=== PATIENT | male | born 1955 | race African-American/Black ===

== ENCOUNTER 2018-06-24 12:17 | Outpatient (CLI) | payer OTHER ==
--- NOTE | 2018-06-24 15:26 | ULT ---
RIGHT LOWER EXTREMITY VENOUS ULTRASOUND WITH DOPPLER 06/24/18 HISTORY: Swelling. Edema. COMPARISON: None. FINDINGS: There is edema involving the right lower extremity starting at the knee and down to the lower leg. Th ere is an anechoic focus in the posterior fossa measuring 3.2 x 3.1. x 5.3 cm suggesting a popliteal cyst. There is a nonspecific likely complex fluid collection in the medial upper calf measuring 9.4 x 7.5 x 3.0 cm. There are internal echos which are presumed to be due to debris. Other etiologies ca nnot be included. There is compressibility, presence of flow and augmentation in the common femoral vein, femoral vein, and popliteal vein. There is flow in the greater saphenous vein, profunda vein and posterior tibial vein. IMPRESSION: 1. No evidence of thrombus in the right lower extremity deep venous system. 2. Nonspecific fluid in the popliteal fossa which may represent an irregular popliteal cyst. Con firmation with MRI. 3. Complex fluid in the medial aspect of the knee and upper calf. Echotexture within this comple x fluid collection is noted. Better interrogation with MRI is recommended. POS: ESTHER
== END 2018-06-24 12:18 | disposition home or self-care (01) ==
LOC: BICULT 12:17
PROVIDERS: ATTEND Family Medicine
DX: R60.0 Localized edema (principal)

== ENCOUNTER 2018-12-17 14:00 | Inpatient (IN) | payer OTHER ==
[2018-12-17 12:35] VITALS: BMI 33.6
[2018-12-22 09:46] LABS: #Basophils 0.1 thou/uL (0.0-0.2); #Eosinphils 0.1 thou/uL (0.0-0.7); #Lymphocytes 2.4 thou/uL (1.20-3.40); #Monocytes 0.5 thou/uL (0.11-0.59); #Neutrophils 2.2 thou/uL (1.40-6.50); %Eosinophils 2.1 % (0.0-10.0); %Lymphocytes 45.8 % (21.0-51.0); %Monocytes 9.4 % (0.0-10.0); %Neutrophils 41.8 % (42.0-75.0); Hemoglobin 13.1 g/dL (14.0-18.0); Mean Corpuscular HGB CONC 33.4 g/dL (32.0-36.0); Mean Corpuscular Hemoglobin 31.1 pg (27.0-31.0); Mean Platelet Volume 8.4 fL (7.4-10.4); Platelet Count 256 thou/uL (130-400); RBC Distribution Width 13.8 % (11.5-14.5); Red Blood Cell (RBC) Count 4.21 mill/uL (4.70-6.10); White Blood Cell (WBC) Count 5.3 thou/uL (4.8-10.8)
[2018-12-22 09:50] LABS: Bilirubin Negative (Negative); Blood, Urine Negative (Negative); Clarity CLEAR (Clear); Glucose, Urine (Dipstick) Negative (Negative); Leukocyte Negative (Negative); Nitrite Negative (Negative); Protein, Urine (Dipstick) 100 mg/dL (Neg-Trace); Specific Gravity, Urine 1.019 (1.002-1.036); pH, Urine 5.5 (5.0-9.0)
[2018-12-22 09:52] LABS: Bacteria/HPF None Seen HPF (None Seen); Hyaline Casts/LPF 0-3 HYALINE CAST LPF (0-3 Hyaline); INR-International Normal Ratio 1.1; Prothrombin Time 13.8 SEC (12.0-14.7); RBC/HPF 0-3 HPF (0-3); Squamous Epithelial None Seen HPF (0-3); WBC/HPF 0-3 HPF (0-3)
[2018-12-22 10:05] LABS: Anion Gap 11 mmol/L (10-20); BUN (Urea Nitrogen) 19 mg/dL (8.4-25.7); Calc. Creatinine Clearance 107 mL/min (70-130); Calcium 8.8 mg/dL (7.8-10.44); Carbon Dioxide 29 mmol/L (23-31); Chloride 103 mmol/L (98-107); Estimated GFR-MDRD 77; Glucose 147 mg/dL (80-115); Potassium 4.1 mmol/L (3.5-5.1); Sodium 139 mmol/L (136-145)
[2019-01-04] MEDS ORDERED: Tranexamic Acid 1,000 MG/10 ML VIAL ONE ×3 (06:03→09:29)
[2019-01-04] MEDS ORDERED: Sodium Chloride 0.9% 100 ML ONE (06:03)
[2019-01-04] MEDS ORDERED: Vancomycin HCl 1.5 GM in Sodium Chloride 0.9% 250 ML 300 ML IVPB SCH ×3 (06:15→20:00)
[2019-01-04] MEDS ORDERED: Midazolam HCl 2 mg/2 ml Vial ONE (06:31)
[2019-01-04] MEDS ORDERED: Fentanyl 100 MCG/2 ML VIAL ONE ×3 (06:31→09:21)
[2019-01-04] MEDS ORDERED: Lidocaine 1% (PF) 30 ML VIAL ONE (06:32)
[2019-01-04] MEDS ORDERED: Promethazine HCl 25 MG/ML VIAL IM PRN ×3 (07:09→09:14)
[2019-01-04] MEDS ORDERED: Fentanyl 100 MCG/2 ML VIAL IV PRN (07:09)
[2019-01-04] MEDS ORDERED: Ondansetron PF 4 MG/2 ML Vial IVP PRN ×2 (07:09→08:59)
[2019-01-04] MEDS ORDERED: traMADol HCl 50 MG TAB PO PRN ×2 (07:09)
[2019-01-04] MEDS ORDERED: Zolpidem Tartrate 5 MG TAB PO PRN ×2 (07:09→08:59)
[2019-01-04] MEDS ORDERED: Ropivacaine HCl/PF 250 ML in Premix Bag 1 BAG NERVE BLCK SCH (07:10)
[2019-01-04] MEDS ORDERED: Bupivacaine HCl 0.5%/Epinephrine 1:200,000/PF 30 ml Vial ONE (07:44)
[2019-01-04] MEDS ORDERED: Bupivacaine PF 0.5% 30 ML VIAL ONE (07:45)
[2019-01-04] MEDS ORDERED: diphenhydrAMINE 25 MG CAP PO PRN (08:59)
[2019-01-04] MEDS ORDERED: Acetaminophen 325 MG TAB PO PRN (08:59)
[2019-01-04] MEDS ORDERED: HYDRALAZINE HCL PO SCH (09:00)
[2019-01-04] MEDS ORDERED: ISOSORB DINIT PO SCH (09:00)
[2019-01-04] MEDS ORDERED: Tranexamic Acid 1,000 MG in Sodium Chloride 0.9% 100 ML IVPB SCH (09:00)
[2019-01-04] MEDS ORDERED: Labetalol HCl 100 MG/20 ML VIAL ONE (09:11)
[2019-01-04] MEDS ORDERED: Promethazine HCl 25 MG/ML VIAL SLOW IVP PRN (09:14)
[2019-01-04] MEDS ORDERED: Ondansetron HCl/PF 4 MG/2 ML Vial IVP PRN (09:14)
[2019-01-04] MEDS: Sodium Chloride 0.9% 1,000 ML IV SCH ×2 (10:28→18:55)
[2019-01-04] MEDS: metFORMIN 500 MG TAB PO SCH (10:31)
[2019-01-04] MEDS: Aspirin 81 mg Enteric Coated Tablet PO SCH ×2 (10:32→20:44)
[2019-01-04] MEDS: Allopurinol 300 MG TAB PO SCH (10:39)
[2019-01-04] MEDS: Ketorolac Tromethamine 30 MG/ML VIAL IVP SCH ×3 (11:08→23:52)
[2019-01-04] MEDS ORDERED: hydrALAZINE 25 MG TAB PO SCH (11:45)
[2019-01-04] MEDS ORDERED: Lisinopril 20 MG TAB PO SCH (11:45)
[2019-01-04] MEDS ORDERED: Isosorbide Dinitrate 20 MG TAB PO SCH (11:45)
[2019-01-04] MEDS ORDERED: Carvedilol 25 MG TAB PO SCH ×2 (11:45→21:00)
[2019-01-04] MEDS ORDERED: Furosemide 20 MG TAB PO SCH (11:45)
[2019-01-04] MEDS ORDERED: Ropivacaine 0.2% HCl/PF (40 MG/20 ML VIAL) ONE (11:57)
[2019-01-04] MEDS ORDERED: Ropivacaine 0.5% HCl/PF (150 MG/30 ML VIAL) ONE (11:57)
[2019-01-04] MEDS ORDERED: PROPOFOL 200 MG/20 ML VIAL ONE (13:13)
[2019-01-04] MEDS ORDERED: Ondansetron PF 4 MG/2 ML Vial ONE (13:13)
[2019-01-04] MEDS ORDERED: Lidocaine 1% PF 5 ML VIAL ONE (13:13)
[2019-01-04] MEDS: HYDROcodone/Acetaminophen 10/325 mg Tablet PO PRN (14:28)
--- NOTE | 2019-01-04 16:00 | OP ---
DATE OF PROCEDURE: 01/04/2019 PREOPERATIVE DIAGNOSIS: Right knee osteoarthrosis. POSTOPERATIVE DIAGNOSIS: Right knee osteoarthrosis. PROCEDURE PERFORMED: Right total knee replacement using [employer] pinless navigation. FLIGHT OPERATIONS MANAGER: Kehinde Blanco PA-C. BLOOD LOSS: Minimal. COMPLICATIONS: None. ANESTHESIA: He did have a general anesthetic as well as a preoperative block. IMPLANTS: To the right leg is a Triathlon total knee system. The femur size 5 cruciate retaining. The tibial base plate was size 5 primary base plate. We used a 5 x 11 mm X3 CS poly and we used an 8.29 x 9 asymmetric X3 patella. DISPOSITION: He did go to recovery room in stable condition. INDICATIONS: A 63-year-old male, who has failed nonoperative treatment for severe right knee arthritis and at this time is wanting to have his knee replaced. PROCEDURE IN DETAIL: After all appropriate consent forms were explained and signed, the patient was taken back to the operating room and at this time was given general anesthetic. Once the level of anesthesia was appropriate, a well-padded tourniquet was placed on the right leg, and the leg was then prepped and draped in standard surgical fashion. The limb was exsanguinated and tourniquet taken up to 300 mmHg. Midline incision was made with a 10 blade down through the skin and subcutaneous tissue. Bovie electrocautery was used to coagulate any brisk venous bleeding. A new blade was used to make a medial parapatellar arthrotomy. Small subperiosteal release was performed medially and excess fat pad was removed. The knee was flexed up to gain access to the femur. The femur was navigated and distal femoral resection was made. Epicondylar access was used to align our sizing jig and this was pinned in place. We sized our femur to be a 5. 4:1 cutting block was applied and pinned. Anterior and posterior chamfer cuts were then made. We navigated out our proximal tibia and made our proximal tibial resection. Spreaders were used to remove any posterior osteophytes off the back of the femur as well as remaining meniscal tissue. A long alignment shabbir was then used to achieve correct rotation of our tibial baseplate and a size 5 was chosen. This was pinned in place. We trialed the polyethylene and a 5 x 11 mm X3 CS polyethylene gave us full extension and good stability throughout range of motion. Two towel clips and a saw were used to cut our patella. Three lug nuts were drilled and 8.29 x 9 asymmetric X3 patella was trialed which sat nicely in the trochlear groove. We then drilled our femur and punched our tibia. All components were removed. The knee was thoroughly irrigated and dried. Cement was mixed into the cement gun on the back table. Components were then placed. The knee was held out in full extension until the cement had dried. All excess bone cement was removed. Multiple #2 Vicryl stitches as well as a Quill were used to close our extensor mechanism. 0 Quill followed by a running Monoderm was then used to close the skin. Surgicel glue was then used on the skin. Once this had dried, soft tissue dressing was applied to the limb, tourniquet was let down, and the toes pinked up nicely. The patient was then awakened and taken to the recovery room in stable condition. All counts were correct at the end of the case. The patient did receive preoperative IV antibiotics. The patient was injected with Exparel for postoperative pain relief. Job ID: [id number]
[2019-01-04] MEDS: CEFAZOLIN 2 GM in Premix Bag 1 BAG IVPB SCH ×2 (16:18→23:51)
[2019-01-04] MEDS ORDERED: Labetalol 5 MG/ML SYRINGE (IV ROOM) SLOW IVP PRN (19:31)
[2019-01-04] MEDS ORDERED: HumaLOG 300 UNITS/3 ML VIAL SC PRN (19:51)
[2019-01-04] MEDS: Atorvastatin Calcium 20 MG TAB PO SCH (20:44)
[2019-01-04] MEDS: hydrALAZINE 25 MG TAB PO SCH (20:44)
[2019-01-04] MEDS: Isosorbide Dinitrate 20 MG TAB PO SCH (20:46)
[2019-01-05] MEDS: HYDROcodone/Acetaminophen 10/325 mg Tablet PO PRN ×3 (00:20→16:11)
--- NOTE | 2019-01-05 00:56 | CON ---
DATE OF CONSULTATION: REASON FOR CONSULTATION: Medical management. HISTORY OF PRESENT ILLNESS: This is a 63-year-old male patient with a history of cardiomyopathy, type 2 diabetes, hypertension, hyperlipidemia, and osteoarthritis of his knee and other joints, who is admitted for a total knee replacement by Dr. Maddox. As the patient was cleared by Cardiology prior to going to surgery, he underwent a right total knee replacement today with no complications. He did have a postoperative episode of elevated blood pressure over 200 systolic. I believe he had not taken his oral medicines today. Medications were given for his blood pressure and his blood pressure came back down to the 150s. He denied chest pain, shortness of breath. Denies palpitations. He is walking well with therapy today and his blood pressure is doing much better. PAST MEDICAL HISTORY: Hypertension, hyperlipidemia, cardiomyopathy, status post AICD placement for decreased ejection fraction. MEDICATIONS: Include: 1. Metformin 500 mg once daily. 2. Lisinopril 40 mg once daily. 3. BiDil 20/37.5 mg three tabs b.i.d. 4. Furosemide 20 mg daily. 5. Carvedilol 25 mg b.i.d. 6. Simvastatin 40 mg daily. 7. Rarely taking naproxen p.r.n. 8. Allopurinol 300 mg daily. ALLERGIES: BENICAR CAUSING SLOWING. PAST SURGICAL HISTORY: Colonoscopy in 2002, cardiac catheterization in June 2014 with AICD placement. FAMILY HISTORY: Mother from coronary artery disease and heart disease. Father, no heart disease. SOCIAL HISTORY: He is retired from working for the [employer]. No smoking. No alcohol. No drug use. He is with children. REVIEW OF SYSTEMS: As per the history of present illness. He denies any recent fevers, chills, or recent illness. HEENT: Denies headache, visual or hearing changes. CARDIAC: No recent episodes of chest pain, shortness of breath or palpitations. PULMONARY: Denies cough or hemoptysis. GI: Denies nausea, vomiting, abdominal pain, melena, hematochezia. : Denies dysuria, hematuria. NEUROLOGIC: No weakness, seizure or syncope. MUSCULOSKELETAL: Positive history of knee pain, gout pain. PHYSICAL EXAMINATION: VITAL SIGNS: Temperature 98.6, pulse 76, respirations 16, blood pressure 158/95, pulse ox 95% on 2 L. GENERAL: He is awake and alert. No acute distress. Speech is clear. NECK: Supple. No JVD, adenopathy, or bruits. HEART: Regular rate and rhythm. LUNGS: Clear bilaterally. ABDOMEN: Obese, soft, nontender, and nondistended. No hepatosplenomegaly. EXTREMITIES: No clubbing, cyanosis, or edema. 2+ peripheral pulses. Moves both extremities. Knee with dressing in place. LABORATORY DATA: Reviewed preoperatively with a white blood cell count of 5300, hemoglobin and hematocrit 13.1 and 39.1, platelets of 256. Sodium 139, potassium 4.1, chloride 103, CO2 of 29, BUN and creatinine 19 and 1.16 with a GFR of 77, glucose of 147. Random Accu-Chek today was 117. ASSESSMENT AND PLAN: This is a 63-year-old gentleman with history of type 2 diabetes, hypertension, and cardiomyopathy with decreased left ventricular ejection fraction, now status post right total knee replacement. 1. Postoperative care as per Dr. Maddox. 2. Hypertension, much better after starting his antihypertensive. We will continue his usual oral medications and labetalol p.r.n. blood pressure over 170. 3. Type 2 diabetes. We will continue his metformin and Accu-Cheks with insulin sliding scale. 4. History of cardiomyopathy. We will continue his home medications and monitor closely. 5. Disposition: Home when okay with Dr. Maddox. I will follow along while he is in house. Job ID: [id number]
[2019-01-05] MEDS: Sodium Chloride 0.9% 1,000 ML IV SCH ×2 (04:15→16:05)
[2019-01-05 04:55] LABS: Mean Corpuscular Volume 93.9 fL (78.0-98.0); Mean Platelet Volume 8.6 fL (7.4-10.4); Platelet Count 213 thou/uL (130-400); Red Blood Cell (RBC) Count 3.57 mill/uL (4.70-6.10); White Blood Cell (WBC) Count 11.3 thou/uL (4.8-10.8)
[2019-01-05] MEDS: Ketorolac Tromethamine 30 MG/ML VIAL IVP SCH ×3 (06:31→17:46)
[2019-01-05] MEDS: HumaLOG 300 UNITS/3 ML VIAL SC PRN ×2 (06:54→21:51)
[2019-01-05] MEDS: metFORMIN 500 MG TAB PO SCH (08:29)
[2019-01-05] MEDS: hydrALAZINE 25 MG TAB PO SCH ×2 (08:29→20:24)
[2019-01-05] MEDS: Ferrous Gluconate 324 MG TAB PO SCH ×2 (08:30→20:23)
[2019-01-05] MEDS: Carvedilol 25 MG TAB PO SCH ×2 (08:30→20:31)
[2019-01-05] MEDS: Aspirin 81 mg Enteric Coated Tablet PO SCH ×2 (08:31→20:23)
[2019-01-05] MEDS: Lisinopril 20 MG TAB PO SCH (08:31)
[2019-01-05] MEDS: Senokot S 8.6-50 MG TAB PO SCH ×2 (08:31→20:23)
[2019-01-05] MEDS: Furosemide 20 MG TAB PO SCH (08:32)
[2019-01-05] MEDS: Isosorbide Dinitrate 20 MG TAB PO SCH ×2 (08:32→20:23)
[2019-01-05] MEDS: Allopurinol 300 MG TAB PO SCH (08:32)
[2019-01-05] MEDS: Multivitamin W/ Minerals 1 TAB PO SCH (08:32)
--- NOTE | 2019-01-05 08:45 | PRG ---
DATE OF SERVICE: 01/05/2019 SUBJECTIVE: The patient is doing well. He is tolerating physical therapy. He walked well yesterday. Denies chest pain, shortness of breath, or palpitations. Blood pressure has been under much better control since yesterday and that he is back on his usual meds. He is off oxygen and feeling well. Had a low-grade temperature yesterday, but improved this morning. Good appetite. OBJECTIVE: VITAL SIGNS: Temperature 99.0, pulse of 74 to 99, respirations 18, blood pressure 150/88, pulse ox 96% on room air. GENERAL: He is awake and alert, in no acute distress. Speech is clear. NECK: Supple. HEART: Regular rate and rhythm. LUNGS: Clear anteriorly. ABDOMEN: Soft. EXTREMITIES: With no edema. Dressing on right knee. LABORATORY DATA: Accu-Chek 117. ASSESSMENT AND PLAN: This is a 63-year-old gentleman with a history of hypertension, cardiomyopathy, type 2 diabetes, now postoperative day #1 from right total knee replacement. 1. Postoperative care as per Orthopedics, tolerating PT well. 2. Hypertension, doing at his baseline. We will continue his oral meds as well as p.r.n. labetalol. 3. Type 2 diabetes, stable on his metformin. 4. History of cardiomyopathy. We will continue his home medications and monitor his blood pressure and breathing closely. Job ID: [id number]
--- NOTE | 2019-01-05 09:56 | PRG ---
DATE OF SERVICE: 01/05/2019 SUBJECTIVE: Humberto is a 63-year-old white male, postop day #1 right total knee arthroplasty. He is doing well. He is appropriate and conversive and pain has been well controlled. OBJECTIVE: GENERAL: He is alert and oriented to person, place, time, situation, grossly nonfocal. VITAL SIGNS: Temperature 99, pulse 71, respiratory rate 18, blood pressure 150/88. EXTREMITIES: Incision is clean. No strike through. He is neurovascularly intact in both lower extremities. LABORATORY DATA: Hemoglobin and hematocrit 11 and 33. IMPRESSION: A 63-year-old male, postop day #1 right total knee arthroplasty, doing well. PLAN: Continue current care. Discharge home tomorrow. Job ID: [id number]
[2019-01-05] MEDS: Atorvastatin Calcium 20 MG TAB PO SCH (20:23)
[2019-01-06] MEDS: HYDROcodone/Acetaminophen 10/325 mg Tablet PO PRN ×3 (00:17→22:35)
[2019-01-06] MEDS: Ketorolac Tromethamine 30 MG/ML VIAL IVP SCH ×2 (00:17→06:27)
[2019-01-06] MEDS: Sodium Chloride 0.9% 1,000 ML IV SCH ×3 (00:47→21:30)
[2019-01-06 05:01] LABS: Hemoglobin 10.7 g/dL (14.0-18.0); Mean Corpuscular HGB CONC 32.6 g/dL (32.0-36.0); Mean Corpuscular Hemoglobin 30.7 pg (27.0-31.0); Mean Corpuscular Volume 94.1 fL (78.0-98.0); Mean Platelet Volume 8.6 fL (7.4-10.4); Platelet Count 201 thou/uL (130-400); RBC Distribution Width 13.9 % (11.5-14.5); White Blood Cell (WBC) Count 12.1 thou/uL (4.8-10.8)
[2019-01-06] MEDS: hydrALAZINE 25 MG TAB PO SCH ×2 (08:06→21:24)
[2019-01-06] MEDS: Furosemide 20 MG TAB PO SCH (08:06)
[2019-01-06] MEDS: Ferrous Gluconate 324 MG TAB PO SCH ×2 (08:09→21:24)
[2019-01-06] MEDS: Aspirin 81 mg Enteric Coated Tablet PO SCH ×2 (08:09→21:23)
[2019-01-06] MEDS: Senokot S 8.6-50 MG TAB PO SCH ×2 (08:09→21:29)
[2019-01-06] MEDS: Lisinopril 20 MG TAB PO SCH (08:09)
[2019-01-06] MEDS: Multivitamin W/ Minerals 1 TAB PO SCH (08:09)
[2019-01-06] MEDS: metFORMIN 500 MG TAB PO SCH (08:10)
[2019-01-06] MEDS: Allopurinol 300 MG TAB PO SCH (08:10)
[2019-01-06] MEDS: Carvedilol 25 MG TAB PO SCH ×2 (08:13→21:24)
[2019-01-06] MEDS: Isosorbide Dinitrate 20 MG TAB PO SCH ×2 (08:13→21:27)
--- NOTE | 2019-01-06 09:50 | PRG ---
DATE OF SERVICE: 01/06/2019 Postop day #2 from right total knee replacement. SUBJECTIVE: The patient is doing well. He is tolerating therapy, walking well. Good pain relief. Denies chest pain, shortness of breath, or palpitations. Good appetite. Denies nausea or vomiting. OBJECTIVE: VITAL SIGNS: Temperature 99.2, T-max of 100.2, pulse of 83, respirations 16, blood pressure 113/72, pulse ox is 92% to 94% on room air. GENERAL: He is awake and alert. No acute distress. He is pleasant. HEENT: Mucosa is moist. NECK: Supple. HEART: Regular rate and rhythm. LUNGS: Clear. EXTREMITIES: With no edema. LABORATORY DATA: White blood cell count 12,100, hemoglobin and hematocrit 10.7 and 32.4, and platelets of 201. Accu-Cheks of 118, 157, 139, 137. ASSESSMENT AND PLAN: This is a 63-year-old gentleman with a history of type 2 diabetes, hypertension, and cardiomyopathy, now status post right total knee replacement and doing quite well. Plan to be discharged home today per Orthopedics. 1. Postoperative care as per Ortho. 2. Hypertension, doing well. We will continue his oral medications. May need to decrease his medications as he is having some low blood pressure readings. We will follow up as an outpatient. 3. Type 2 diabetes, has been doing quite stable on metformin. DISPOSITION: Home when okay with orthopedics and will have follow up for his blood pressure and diabetes as an outpatient. Job ID: [id number]
[2019-01-06] MEDS: Atorvastatin Calcium 20 MG TAB PO SCH (21:24)
[2019-01-07 04:54] LABS: Hemoglobin 9.6 g/dL (14.0-18.0); Mean Corpuscular HGB CONC 33.2 g/dL (32.0-36.0); Mean Corpuscular Hemoglobin 31.1 pg (27.0-31.0); Mean Corpuscular Volume 93.9 fL (78.0-98.0); Mean Platelet Volume 8.7 fL (7.4-10.4); Platelet Count 196 thou/uL (130-400); RBC Distribution Width 13.9 % (11.5-14.5); Red Blood Cell (RBC) Count 3.08 mill/uL (4.70-6.10); White Blood Cell (WBC) Count 9.5 thou/uL (4.8-10.8)
[2019-01-07] MEDS: Sodium Chloride 0.9% 1,000 ML IV SCH (06:40)
[2019-01-07 07:57] VITALS: TEMP 98.5
[2019-01-07] MEDS: hydrALAZINE 25 MG TAB PO SCH (08:40)
[2019-01-07] MEDS: Allopurinol 300 MG TAB PO SCH (08:40)
[2019-01-07] MEDS: Isosorbide Dinitrate 20 MG TAB PO SCH (08:42)
[2019-01-07] MEDS: Lisinopril 20 MG TAB PO SCH (08:42)
[2019-01-07] MEDS: metFORMIN 500 MG TAB PO SCH (08:42)
[2019-01-07] MEDS: Furosemide 20 MG TAB PO SCH (08:43)
[2019-01-07] MEDS: Multivitamin W/ Minerals 1 TAB PO SCH (08:43)
[2019-01-07] MEDS: Aspirin 81 mg Enteric Coated Tablet PO SCH (08:43)
[2019-01-07] MEDS: Carvedilol 25 MG TAB PO SCH (08:43)
[2019-01-07 08:44] VITALS: BP 180/85
[2019-01-07] MEDS: Senokot S 8.6-50 MG TAB PO SCH (08:44)
[2019-01-07] MEDS: Ferrous Gluconate 324 MG TAB PO SCH (08:44)
[2019-01-07] MEDS: HYDROcodone/Acetaminophen 10/325 mg Tablet PO PRN (10:16)
== END 2019-01-07 11:32 | disposition home or self-care (01) | DRG 470 ==
LOC: EDBD 12-28 14:00 → SJJU 01-04 05:24
PROVIDERS: ADMIT Orthopaedic Surgery; ATTEND Orthopaedic Surgery
PROC: 0SRC0J9 Replacement of Right Knee Joint with Synthetic Substitute, Cemented, Open Approach (ICD-10-PCS; principal; 2019-01-04)
DX: M17.11 Unilateral primary osteoarthritis, right knee (principal); I42.9 Cardiomyopathy, unspecified; E11.9 Type 2 diabetes mellitus without complications; I10 Essential (primary) hypertension; E78.5 Hyperlipidemia, unspecified; Z95.810 Presence of automatic (implantable) cardiac defibrillator; Z79.84 Long term (current) use of oral hypoglycemic drugs; Z79.899 Other long term (current) drug therapy; Z88.8 Allergy status to other drugs, medicaments and biological substances
CPT/HCPCS: 36415; 36416; 80048; 81001; 85025; 85027; 85610; 86850; 86900; 86901; 87081; C1713; C1776; J0670; J0690; J1885; J2001; J2250; J2405; J2550; J2704; J2795; J3010; J3370; J3490; J7050; S0020

== ENCOUNTER 2018-12-22 08:52 | Outpatient (CLI) | payer OTHER ==
--- NOTE | 2018-12-22 21:21 | EKG ---
Test Reason : Blood Pressure : / mmHG Vent. Rate : 084 BPM Atrial Rate : 084 BPM P-R Int : 226 ms QRS Dur : 098 ms QT Int : 400 ms P-R-T Axes : 049 003 227 degrees QTc Int : 472 ms Sinus rhythm with 1st degree A-V block with Premature atrial complexes Left ventricular hypertrophy with repolarization abnormality Abnormal ECG When compared with ECG of 22-JUL-2014 10:27, No significant change was found Confirmed by CAROLINA BAR, SJacky ([id number]) on 12/22/2018 9:21:46 PM Referred By: Danielito JAMES Confirmed By:DR. Octaviano FIGUEROA MD
== END 2018-12-22 08:53 | disposition home or self-care (01) ==
LOC: LABBT 08:52
PROVIDERS: ATTEND Orthopaedic Surgery
DX: M25.561 Pain in right knee (principal); G89.29 Other chronic pain
CPT/HCPCS: 93005; 93010

== ENCOUNTER 2019-02-08 03:34 | Emergency (ER) | payer OTHER ==
[2019-02-08 07:02] LABS: #Lymphocytes 1.5 thou/uL (1.20-3.40); #Monocytes 0.9 thou/uL (0.11-0.59); #Neutrophils 9.6 thou/uL (1.40-6.50); %Basophils 0.2 % (0.0-1.0); %Lymphocytes 12.1 % (21.0-51.0); %Monocytes 7.4 % (0.0-10.0); %Neutrophils 80.2 % (42.0-75.0); Hemoglobin 10.8 g/dL (14.0-18.0); Mean Corpuscular Volume 90.9 fL (78.0-98.0); Mean Platelet Volume 7.5 fL (7.4-10.4); Platelet Count 251 thou/uL (130-400); RBC Distribution Width 14.4 % (11.5-14.5); Red Blood Cell (RBC) Count 3.58 mill/uL (4.70-6.10)
[2019-02-08 07:23] LABS: ALT (SGPT) 9 U/L (8-55); AST (SGOT) 13 U/L (5-34); Alkaline Phosphatase 72 U/L (40-150); Anion Gap 13 mmol/L (10-20); BUN (Urea Nitrogen) 26 mg/dL (8.4-25.7); Bilirubin, Total 0.7 mg/dL (0.2-1.2); Calc. Creatinine Clearance 0 mL/min (70-130); Calcium 9.4 mg/dL (7.8-10.44); Carbon Dioxide 20 mmol/L (23-31); Chloride 104 mmol/L (98-107); Estimated GFR-MDRD 65; Globulin 3.6 g/dL (2.4-3.5); Glucose 121 mg/dL (80-115); Magnesium 1.5 mg/dL (1.6-2.6); Potassium 4.2 mmol/L (3.5-5.1); Protein, Total 7.6 g/dL (5.8-8.1); Sodium 133 mmol/L (136-145)
[2019-02-08 07:40] LABS: Bilirubin Negative (Negative); Blood, Urine Negative (Negative); Clarity CLEAR (Clear); Glucose, Urine (Dipstick) Negative (Negative); Leukocyte Moderate (Negative); Nitrite Negative (Negative); Protein, Urine (Dipstick) 100 mg/dL (Neg-Trace); Specific Gravity, Urine 1.018 (1.002-1.036); Urobilinogen 0.2 mg/dL (0.2-1.0)
--- NOTE | 2019-02-08 07:42 | RAD ---
RADIOGRAPH CHEST ONE VIEW RADIOGRAPH ABDOMEN 2 VIEWS: DATE: 02/08/2019 HISTORY: 63-year-old male with generalized abdominal pain FINDINGS: There are no airspace densities or pulmonary edema. The lateral costophrenic angles are sharp. There is no cardiomegaly. There is no evidence of pneumothorax or pneumoperitoneum. Single lead left subclavian AICD. Ectatic, tortuous thoracic aorta. There is no evidence of dilated small bowel loops, differential air-fluid levels, or organomegaly. IMPRESSION: 1) No acute cardiopulmonary findings. 2) no evidence of bowel obstruction. 3) automatic implantable cardioverter-defibrillator
[2019-02-08 07:44] LABS: Bacteria/HPF None Seen HPF (None Seen); Hyaline Casts/LPF 4-6 HYALINE CAST LPF (0-3 Hyaline); RBC/HPF 0-3 HPF (0-3); Squamous Epithelial None Seen HPF (0-3)
== END 2019-02-08 07:58 | disposition home or self-care (01) ==
LOC: ERS 03:34
DX: E86.0 Dehydration (principal); K59.00 Constipation, unspecified; E11.9 Type 2 diabetes mellitus without complications; E78.5 Hyperlipidemia, unspecified; I10 Essential (primary) hypertension; Z79.899 Other long term (current) drug therapy; Z79.84 Long term (current) use of oral hypoglycemic drugs
CPT/HCPCS: 36415; 74022; 80053; 81003; 81015; 83735; 85025; 96360

== ENCOUNTER 2020-05-31 05:52 | Day surgery (SDC) | payer MEDICARE, OTHER ==
[2020-05-25 14:38] VITALS: BMI 30.9
[2020-05-31 06:47] LABS: #Basophils 0.1 thou/uL (0.0-0.2); #Eosinphils 0.2 thou/uL (0.0-0.7); #Monocytes 0.6 thou/uL (0.11-0.59); #Neutrophils 3.3 thou/uL (1.40-6.50); %Basophils 0.8 % (0.0-1.0); %Eosinophils 3.3 % (0.0-10.0); %Lymphocytes 41.5 % (21.0-51.0); %Monocytes 7.7 % (0.0-10.0); %Neutrophils 46.7 % (42.0-75.0); Hemoglobin 13.1 g/dL (14.0-18.0); Mean Corpuscular Hemoglobin 32.7 pg (27.0-31.0); Mean Platelet Volume 7.8 fL (7.4-10.4); Platelet Count 259 thou/uL (130-400); White Blood Cell (WBC) Count 7.2 thou/uL (4.8-10.8)
[2020-05-31 07:01] LABS: PTT 34.9 sec (22.9-36.1); Prothrombin Time 13.4 sec (12.0-14.7)
[2020-05-31 07:07] LABS: Anion Gap 14 mmol/L (10-20); BUN (Urea Nitrogen) 24 mg/dL (8.4-25.7); Calc. Creatinine Clearance 87 mL/min (70-130); Calcium 8.5 mg/dL (7.8-10.44); Carbon Dioxide 23 mmol/L (23-31); Chloride 103 mmol/L (98-107); Estimated GFR-MDRD 68; Glucose 115 mg/dL (80-115); Potassium 3.5 mmol/L (3.5-5.1); Sodium 136 mmol/L (136-145)
[2020-05-31] MEDS ORDERED: Midazolam HCl 2 mg/2 ml Vial ONE (07:29)
[2020-05-31] MEDS ORDERED: Fentanyl 100 MCG/2 ML VIAL ONE (07:29)
[2020-05-31] MEDS ORDERED: Lidocaine 1% (PF) 30 ML VIAL ONE (08:16)
[2020-05-31] MEDS ORDERED: Heparin 10,000 UNITS/ 10 ML VIAL ONE (08:17)
[2020-05-31] MEDS ORDERED: Isoproterenol 0.2 MG/1 ML AMP ONE (09:26)
[2020-05-31] MEDS ORDERED: PROPOFOL 200 MG/20 ML VIAL ONE (10:18)
[2020-05-31] MEDS ORDERED: Metoprolol Tartrate 5 MG/5 ML VIAL ONE (11:08)
--- NOTE | 2020-05-31 14:35 | OP ---
DATE OF PROCEDURE: 05/31/2020 PROCEDURE PERFORMED: Electrophysiology study and radiofrequency ablation. ADDITIONAL REFERRING PHYSICIAN: Dr. Larry Bailey. REASON FOR PROCEDURE: Mr. Naqvi is a 65-year-old man with prior history of CHF, nonischemic cardiomyopathy, diabetes, who has a single-chamber ICD in place, also has paroxysmal SVT requiring IV diltiazem during his last hospitalization. Overdrive ventricular pacing seems to terminate the arrhythmia. DESCRIPTION OF PROCEDURE: The patient received deep sedation by Anesthesia specialist. After adequate level of sedation achieved, the left and right femoral veins were prepped, draped, anesthetized using subcutaneous lidocaine, and under ultrasound guidance, the veins were cannulated, on the left side, a 6 and 8-Qatari sheath was used to advance DecaNav and Octopolar diagnostic catheters to the right atrium. 3D map of the right atrium was obtained with the help of a DecaNav catheter. The His bundle and CS were delineated. The Octopolar catheter was placed into the RV and His positions. Pacing, mapping, and recording were performed at each location including pacing the left atrium via the CS. Following findings were noted. The baseline rhythm was sinus rhythm, cycle length 901 milliseconds, GA 191 milliseconds, QRS 97 milliseconds, QT 337 milliseconds, AH 155 milliseconds, HV 52 milliseconds. AV Wenckebach cycle length was 340 milliseconds. Retrograde Wenckebach cycle length was less than 300 milliseconds. Central retrograde VA conduction was noted. Dual AV node physiology was seen, but jump was mostly noted prior to the block at baseline. Burst atrial pacing at baseline did not induce arrhythmias but atrial fibrillation, which was cardioverted. Isuprel was administered, during which atrial tachycardia was noted. With help of Isuprel, a sustained narrow complex SVT was induced, which had VA timing of 140 milliseconds, the cycle length was about 350 milliseconds. The ventricular overdrive pacing performed and VA-AV response was seen after termination, which was suggestive of atrial tachycardia. Through the right femoral venous access, a ThermoCoRed Butler SFST catheter was advanced to the right atrium and 3D map of the right atrium was obtained. During tachycardia, the earliest activation was mapped to the tricuspid anulus at 11 o'clock position. Radiofrequency ablation was delivered at this location, eliminating re-inducibility. Further pacing maneuvers induced an additional narrow complex tachycardia with very short VA timing about 30 milliseconds, which was consistent with AV belle reentrant tachycardia. Slow pathway modification was also performed with different settings at 50 sesay, 60 degree cut off without irrigation. Junctional beats were noted during the larkin and no AV block was seen. At end of the ablation, Isuprel was restarted and neither atrial tachycardia or the AV belle reentrant tachycardia was re-inducible. The cardiac silhouette did not change with the procedure. The catheter was removed and a Vascade closure was performed with ultrasound guidance in all three femoral venous access sites. Total ablation time 916 seconds. CONCLUSION: 1. Inducible right atrial tachycardia mapped to the tricuspid anulus about 11 o'clock position, where it was ablated non-reducible. 2. 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 3. Frequent left atrial PACs were seen on Isuprel. 4. Burst atrial pacing induced a sustained atrial fibrillation, which was cardioverted. PLAN: Routine post ablation care. Continue monitoring for recurrent arrhythmias. Consider adding additional beta-isabelle agents . For now, no clinical atrial fibrillation is noted. Monitor for that. Continue aspirin only for thromboprophylaxis. Job ID: [id number]
--- NOTE | 2020-05-31 20:56 | EKG ---
Test Reason : PREOP Blood Pressure : / mmHG Vent. Rate : 096 BPM Atrial Rate : 096 BPM P-R Int : 216 ms QRS Dur : 094 ms QT Int : 370 ms P-R-T Axes : 063 -01 189 degrees QTc Int : 467 ms Sinus rhythm with 1st degree A-V block with Premature supraventricular complexes Voltage criteria for left ventricular hypertrophy T wave abnormality, consider inferolateral ischemia Prolonged QT Abnormal ECG No previous ECGs available Confirmed by Carmen PENA ([id number]) on 05/31/2020 8:55:57 PM Referred By: TOSHIA Confirmed By:Carmen PENA
--- NOTE | 2020-05-31 21:04 | EKG ---
Test Reason : POST ABLATION Blood Pressure : / mmHG Vent. Rate : 082 BPM Atrial Rate : 082 BPM P-R Int : 246 ms QRS Dur : 096 ms QT Int : 390 ms P-R-T Axes : 067 009 228 degrees QTc Int : 455 ms Sinus rhythm with 1st degree A-V block T wave abnormality, consider inferolateral ischemia Abnormal ECG Confirmed by Carmen PENA ([id number]) on 05/31/2020 9:04:23 PM Referred By: TOSHIA Confirmed By:Carmen PENA
== END 2020-05-31 15:45 | disposition home or self-care (01) ==
LOC: SDC 05:52
PROVIDERS: ATTEND Internal Medicine Cardiovascular Disease
PROC: 02583ZZ Destruction of Conduction Mechanism, Percutaneous Approach (ICD-10-PCS; principal; 2020-05-31)
PROC: 02K83ZZ Map Conduction Mechanism, Percutaneous Approach (ICD-10-PCS; 2020-05-31)
PROC: 4A023FZ Measurement of Cardiac Rhythm, Percutaneous Approach (ICD-10-PCS; 2020-05-31)
PROC: 4A0234Z Measurement of Cardiac Electrical Activity, Percutaneous Approach (ICD-10-PCS; 2020-05-31)
DX: I47.1 Supraventricular tachycardia (principal); I42.0 Dilated cardiomyopathy; I11.0 Hypertensive heart disease with heart failure; I50.9 Heart failure, unspecified; E11.9 Type 2 diabetes mellitus without complications; E78.5 Hyperlipidemia, unspecified; M19.90 Unspecified osteoarthritis, unspecified site; M10.9 Gout, unspecified; Z86.19 Personal history of other infectious and parasitic diseases; Z79.84 Long term (current) use of oral hypoglycemic drugs; Z79.899 Other long term (current) drug therapy; Z88.8 Allergy status to other drugs, medicaments and biological substances; Z95.810 Presence of automatic (implantable) cardiac defibrillator
CPT/HCPCS: 76942; 80048; 85025; 85610; 85730; 92960; 93005 ×2; 93613; 93623; 93653; 93655; C1730; C1732 ×2; 36415; 93010; J1644; J2001; J2250; J2704; J3010

== ENCOUNTER 2020-08-16 10:25 | Outpatient (CLI) | payer MEDICARE, OTHER ==
--- NOTE | 2020-08-16 12:03 | RAD ---
Arthrogram right shoulder HISTORY: Internal derangement. FINDINGS: After explaining the procedure and answering all questions, the anterior aspect of the [facility] t shoulder was prepped and draped in usual sterile fashion. Sterile technique, buffered local anesthesia, fluoroscopic guidance, and an anterior approach were us ed to carefully advance the tip of a 22-gauge spinal needle into the joint capsule at the level of the head. Approximately 8 cc of a liquid mixture containing normal saline, iodinated contrast, and 1% lidocaine were carefully instilled into the joint capsule under fluoroscopic control. Needle was removed and spot images obtained. Patient tolerated the procedure well and was transferred to CT in good condition for further imaging. Contrast did not extend beyond the expected confines of the joint capsule. There is irregularity of the periphery of the capsule. Prominent osteophytosis and joint space narrowing. IMPRESSION : Technically successful right shoulder arthrogram. CT is pending.
--- NOTE | 2020-08-16 12:16 | CT ---
EXAM: CT arthrogram right shoulder with intra-articular contrast PROVIDED CLINICAL HISTORY: Shoulder pain COMPARISON: None FINDINGS: There is administered intra-articular contrast material present within the subacromial subdeltoid bur sa, compatible with full-thickness rotator cuff tear. There is marked narrowing of the acromiohumeral interval anteriorly, with intact supraspinatus tendon fibers not definitely identified . The components of the rotator cuff appear otherwise intact. There is supraspinatus muscular volume loss without fatty infiltration. There is insufficient visualization of the long head biceps tendon for comment regarding integrity. T here is conspicuous glenohumeral articular cartilage loss, which appears full-thickness involving much of the humeral head articular surface and anterior aspects of the glenoid articular surface. Ost eophyte formation is seen arising from the humeral head. No displaced tear of the glenoid labrum is evident. Acromioclavicular joint osteoarthrosis is demonstrated. No lytic or blastic bony lesions are evident. There is no evidence for axillary lymph node enlargement. The visualized right lung field appears free of significant opacity. The partially visualized heart appears enlarged. IMPRESSION: 1. Full-thickness supraspinatus tendon tear, with associated mild muscular volume loss. 2. Advanced glenohumeral chondrosis.
== END 2020-08-16 10:26 | disposition home or self-care (01) ==
LOC: RAD 10:25
PROVIDERS: ATTEND Orthopaedic Surgery
DX: M25.511 Pain in right shoulder (principal); M75.101 Unspecified rotator cuff tear or rupture of right shoulder, not specified as traumatic; M24.111 Other articular cartilage disorders, right shoulder
CPT/HCPCS: 23350

== ENCOUNTER 2020-11-16 05:29 | Inpatient (IN) | payer MEDICARE, BC ==
[2020-11-15 10:59] VITALS: BMI 31.4
[2020-11-16] MEDS ORDERED: Vancomycin 1.5 GRAM/300 ML BAG ONE (06:08)
[2020-11-16] MEDS ORDERED: Sodium Chloride 0.9% 100 ML ONE (06:08)
[2020-11-16] MEDS ORDERED: Tranexamic Acid 1,000 MG/10 ML VIAL ONE (06:08)
[2020-11-16] MEDS ORDERED: hydrALAZINE 20 MG/ML VIAL ONE ×3 (06:51→10:48)
[2020-11-16] MEDS ORDERED: Fentanyl 100 MCG/2 ML VIAL ONE ×2 (07:14→10:09)
[2020-11-16] MEDS ORDERED: Midazolam HCl 2 mg/2 ml Vial ONE (07:14)
[2020-11-16] MEDS ORDERED: Morphine 2 MG/ML VIAL SLOW IVP PRN (07:15)
[2020-11-16] MEDS ORDERED: HYDROcodone/Acetaminophen 10/325 mg Tablet PO PRN ×3 (07:15→08:15)
[2020-11-16] MEDS ORDERED: Lidocaine 1% (PF) 30 ML VIAL ONE (07:35)
[2020-11-16] MEDS ORDERED: Phenylephrine 10 MG/ML VIAL ONE (07:39)
[2020-11-16] MEDS ORDERED: Fentanyl 100 MCG/2 ML VIAL SLOW IVP PRN (08:05)
[2020-11-16] MEDS ORDERED: Zolpidem Tartrate 5 MG TAB PO PRN (08:15)
[2020-11-16] MEDS ORDERED: Ropivacaine 0.2% 550 ML 550 ML NERVE BLCK SCH (08:15)
[2020-11-16] MEDS ORDERED: Ondansetron PF 4 MG/2 ML Vial IVP PRN (08:15)
[2020-11-16] MEDS ORDERED: Promethazine HCl 25 MG/ML VIAL IM PRN ×2 (08:15→09:59)
[2020-11-16] MEDS ORDERED: traMADol HCl 50 MG TAB PO PRN ×2 (08:15)
[2020-11-16] MEDS ORDERED: metFORMIN 500 MG TAB PO SCH (09:00)
[2020-11-16] MEDS ORDERED: PROPOFOL 200 MG/20 ML VIAL ONE (09:27)
[2020-11-16] MEDS ORDERED: Lidocaine 1% PF 5 ML VIAL ONE (09:27)
[2020-11-16] MEDS ORDERED: Ropivacaine 2% HCl/PF (20 MG/10 ML VIAL) ONE (09:27)
[2020-11-16] MEDS ORDERED: Ropivacaine 0.5% HCl/PF (150 MG/30 ML VIAL) ONE (09:27)
[2020-11-16] MEDS ORDERED: Rocuronium Bromide 10 MG/ML (10ML VIAL) ONE (09:27)
[2020-11-16] MEDS ORDERED: Esmolol 100 MG/10 ML VIAL ONE (09:27)
[2020-11-16] MEDS ORDERED: Ondansetron PF 4 MG/2 ML Vial ONE (09:27)
[2020-11-16] MEDS ORDERED: SUGAMMADEX SODIUM 200 MG/2 ML VIAL ONE (09:29)
[2020-11-16] MEDS ORDERED: Promethazine HCl 25 MG/ML VIAL SLOW IVP PRN (09:59)
[2020-11-16] MEDS ORDERED: Ondansetron HCl/PF 4 MG/2 ML Vial IVP PRN (09:59)
[2020-11-16] MEDS ORDERED: Promethazine HCl 25 MG/ML VIAL ONE (11:00)
--- NOTE | 2020-11-16 11:06 | OP ---
DATE OF PROCEDURE: 11/16/2020 TITLE OF PROCEDURE: Right reverse total shoulder arthroplasty and biceps tenodesis. HEEL SHAPER: Marquita. BLOOD LOSS: 200. SPECIMEN: None. DRAINS: None. COMPLICATIONS: None. IMPLANTS USED: Tornier base plate 29 mm with superior locking screw 32, inferior screw was not used, anterior screw 32, posterior 29, all good purchase, sphere was 36 centered, the stem was a 5B flex, tray is high offset 0 mm, poly is 6 mm. NARRATIVE REPORT: After appropriate consent was obtained, the patient was placed in the beach chair position with a roll under the right shoulder. The right shoulder was prepped and draped in the usual sterile fashion. I made a standard deltopectoral approach. Cephalic vein was taken medially and preserved. Branches were coagulated. The deltopectoral interval was opened. The biceps tendon was identified. The tendon was frayed and in poor condition. I removed the biceps from the groove and tagged it for later repair. It was eventually tagged to soft tissues using #5 Ethibond suture. The subscapularis was taken down. Bone spurs were removed. Subscapularis was tacked for later repair. Using the Shahidnier guide, a standard cut was performed. I then exposed the glenoid circumferentially. I drilled a central hole and reamed the glenoid. The glenoid baseplate was deployed without difficulty and screws were inserted in the usual technique. Glenosphere was docked without difficulty after irrigation. Attention was turned to the humerus, which was opened with an acetabular and a shaft reamer to the appropriate size. Trial implant was placed and a trial reduction was performed. Trials were removed and irrigation performed. I placed drill holes through the lesser tuberosity to repair the subscapularis. Permanent implant was impacted into place. The shoulder was reduced and confirmed to have good stability throughout a range of motion. Subscapularis was tacked down with a cottony Dacron suture. Additional irrigation was performed. The deltopectoral interval was repaired with #2-0 Vicryl and subcutaneous tissue closed with 2-0 Vicryl. The skin was closed with oni and a sterile dressing was applied. Job ID: [id number]
[2020-11-16] MEDS: Lactated Ringer's 1,000 ML IV SCH ×2 (17:24→19:48)
[2020-11-16] MEDS: Lisinopril 20 MG TAB PO SCH (17:25)
[2020-11-16] MEDS: hydrALAZINE 25 MG TAB PO SCH ×2 (17:25→19:51)
[2020-11-16] MEDS: Furosemide 20 MG TAB PO SCH (17:26)
[2020-11-16] MEDS: Isosorbide Dinitrate 20 MG TAB PO SCH ×2 (17:26→19:56)
[2020-11-16] MEDS: Allopurinol 300 MG TAB PO SCH (17:26)
[2020-11-16] MEDS: Ezetimibe 10 MG TAB PO SCH (17:26)
[2020-11-16] MEDS: Carvedilol 25 MG TAB PO SCH ×2 (17:26→19:51)
[2020-11-16] MEDS: Ascorbic Acid 500 mg Chewable Tablet PO SCH (17:27)
[2020-11-16] MEDS: Zinc Sulfate 220 MG CAP PO SCH (17:27)
[2020-11-16] MEDS: CEFAZOLIN 2 GM in Premix Bag 1 BAG IVPB SCH ×2 (17:28→19:51)
[2020-11-16] MEDS: Ketorolac Tromethamine 30 MG/ML VIAL IVP SCH ×3 (17:29→23:58)
[2020-11-16] MEDS ORDERED: Dextrose 50% Abboject 50 ML SYRINGE SLOW IVP PRN (18:01)
[2020-11-16] MEDS ORDERED: Dextrose 5% in Water 1,000 ML IV PRN (18:01)
[2020-11-16] MEDS ORDERED: HumaLOG 300 UNITS/3 ML VIAL SC PRN ×2 (18:01)
[2020-11-16] MEDS ORDERED: Acetaminophen 325 MG TAB PO PRN (18:02)
[2020-11-16] MEDS ORDERED: Acetaminophen 650 MG Suppository PR PRN (18:02)
[2020-11-16 19:23] LABS: #Lymphocytes 1.6 thou/uL (1.20-3.40); #Neutrophils 6.7 thou/uL (1.40-6.50); %Basophils 0.5 % (0.0-1.0); %Eosinophils 0.3 % (0.0-10.0); %Monocytes 10.2 % (0.0-10.0); %Neutrophils 71.9 % (42.0-75.0); Hemoglobin 12.7 g/dL (14.0-18.0); Mean Corpuscular HGB CONC 33.3 g/dL (32.0-36.0); Mean Corpuscular Hemoglobin 31.8 pg (27.0-31.0); Mean Corpuscular Volume 95.5 fL (78.0-98.0); Mean Platelet Volume 8.4 fL (7.4-10.4); Platelet Count 233 thou/uL (130-400); RBC Distribution Width 14.1 % (11.5-14.5); White Blood Cell (WBC) Count 9.3 thou/uL (4.8-10.8)
--- NOTE | 2020-11-16 19:34 | CON ---
DATE OF CONSULTATION: 11/16/2020 TIME OF ASSESSMENT: 1700 hours. REASON FOR CONSULTATION: Medical management. HISTORY OF PRESENT ILLNESS: Mr. Naqvi is a very pleasant 65-year-old gentleman who was admitted to the hospital with plans to undergo a right reverse total shoulder arthroplasty done earlier today by Dr. Villanueva. Following the surgery, the patient states pain is under control, but he does report discomfort on his bottom from sitting in bed. He has not eaten yet and so far denies experiencing any nausea or vomiting. Denies any abdominal pain. Has no chest pain, palpitations, or shortness of breath. Overall, he feels well and is without any complaints. He apparently had a right shoulder arthritis with a previous traumatic complete tear of the right rotator cuff in the past. He had multiple steroid injections in the past for the chronic right shoulder pain without any relief. It was therefore decided for him to undergo the total shoulder replacement today, which he seems to have undergone without any major complications. PAST MEDICAL HISTORY: 1. Gout. 2. Hypertension. 3. Left shoulder tendinitis. 4. Hydrocele. 5. CAD. 6. Obesity. 7. History of PACs/SVT. 8. Nonischemic cardiomyopathy, last echo done on September 12, 2020, showing an EF of 35% to 40%. There was mild dilation of the LV chamber, mildly dilated left atrium with moderately reduced systolic function, and mild AR/TR/MR. 9. Hyperlipidemia. PAST SURGICAL HISTORY: 1. Status post cardiac ablation in May 2020 for history of SVT. 2. AICD placement, single-chamber. 3. Right total knee replacement in December 2018. 4. Colonoscopy in 2002. 5. Right reverse total shoulder arthroplasty and biceps tenodesis on November 16, 2020. SOCIAL HISTORY: The patient denies any history of tobacco use, alcohol consumption, or drug use. Lives with his . He is fully independent at baseline. FAMILY HISTORY: Mother had a history of CAD and is . ALLERGIES: 1. BENICAR CAUSES SWELLING. 2. CEPHALEXIN CAUSES DIZZINESS. PHYSICAL EXAMINATION: GENERAL: The patient appears well developed, well nourished, is in no acute distress. He is resting comfortably in bed. VITAL SIGNS: Temperature 98.4, pulse 101, respirations 21, O2 saturation 95% on room air, blood pressure 182/101. HEENT: Normocephalic and atraumatic. Pupils are equal, round, reactive to light. Sclerae icterus. Oropharynx is clear. NECK: Supple. No lymphadenopathy. LUNGS: Clear to auscultation bilaterally without wheezes, rales, or rhonchi. CARDIAC: Regular rate and rhythm. ABDOMEN: Soft, obese, nontender, nondistended. Normoactive bowel sounds present. No guarding or rigidity. No renal angle tenderness. EXTREMITIES: Show peripheral pulses are equal bilaterally. No pitting edema. SKIN: Warm and dry. NEUROLOGIC: Alert and oriented x3. No neuro deficits on exam. LABORATORY DATA: Done on 11/13/2020 showed white cell count 6.1, hemoglobin 13, hematocrit 40.1%, platelets 253. BUN 23, creatinine 1.29, GFR 68, glucose 148. COVID testing done on 11/13/2020 was negative. IMAGING DATA: None. IMPRESSION AND PLAN: Mr. Naqvi is a very pleasant 65-year-old gentleman who is status post a right reverse total shoulder arthroplasty and biceps tenodesis. He has been referred for medical management of the following. 1. Essential hypertension. The patient's blood pressure was done and elevated at 182/101. He did miss his usual blood pressure medications today, which have just been given. We will continue to monitor his blood pressure and provide p.r.n. antihypertensives if needed. Laboratory studies have been ordered and we will make adjustments to home medications that have been reconciled based on renal function if necessary. 2. Nonischemic cardiomyopathy. No evidence of fluid overload. He is receiving gentle hydration. We will continue to monitor. Home medications have been restarted. 3. Hyperlipidemia. Home medications have been restarted. 4. Gout. Allopurinol has been restarted. 5. Diabetes mellitus. Insulin sliding scale initiated. We will monitor glucose, Accu-Cheks a.c. at bedtime. We will hold metformin for now. 6. Gastrointestinal prophylaxis with famotidine. 7. Deep venous thrombosis prophylaxis with mechanical SCDs. 8. Code status full. 9. Status post right shoulder surgery. As per primary team. 10. Case discussed with attending who agrees with plan of care as described above. Thank you for this consultation. We will continue to follow the patient with you. Job ID: [id number]
[2020-11-16 19:50] LABS: ALT (SGPT) 15 U/L (8-55); AST (SGOT) 17 U/L (5-34); Albumin 3.4 g/dL (3.4-4.8); Alkaline Phosphatase 57 U/L (40-110); Anion Gap 12 mmol/L (10-20); BUN (Urea Nitrogen) 18 mg/dL (8.4-25.7); Bilirubin, Total 0.5 mg/dL (0.2-1.2); Calc. Creatinine Clearance 85 mL/min (70-130); Calcium 8.4 mg/dL (7.8-10.44); Carbon Dioxide 24 mmol/L (23-31); Chloride 105 mmol/L (98-107); Globulin 2.9 g/dL (2.4-3.5); Glucose 126 mg/dL (80-115); Potassium 4.2 mmol/L (3.5-5.1); Protein, Total 6.3 g/dL (5.8-8.1); Sodium 137 mmol/L (136-145)
[2020-11-16] MEDS: Famotidine 20 MG TAB PO SCH (19:50)
--- NOTE | 2020-11-16 21:03 | EKG ---
Test Reason : PREOP Blood Pressure : / mmHG Vent. Rate : 085 BPM Atrial Rate : 085 BPM P-R Int : 204 ms QRS Dur : 098 ms QT Int : 384 ms P-R-T Axes : 060 000 194 degrees QTc Int : 456 ms Normal sinus rhythm Left ventricular hypertrophy with repolarization abnormality Abnormal ECG When compared with ECG of 31-MAY-2020 12:41, AK interval has decreased Confirmed by Carmen PENA ([id number]) on 11/16/2020 9:02:56 PM Referred By: PRAKASH Confirmed By:Carmen PENA
[2020-11-17] MEDS: Ketorolac Tromethamine 30 MG/ML VIAL IVP SCH ×2 (05:19→11:40)
[2020-11-17 06:34] LABS: #Basophils 0.1 thou/uL (0.0-0.2); #Eosinphils 0.1 thou/uL (0.0-0.7); #Lymphocytes 1.8 thou/uL (1.20-3.40); #Monocytes 1.1 thou/uL (0.11-0.59); #Neutrophils 5.8 thou/uL (1.40-6.50); %Basophils 0.8 % (0.0-1.0); %Eosinophils 0.9 % (0.0-10.0); %Lymphocytes 20.9 % (21.0-51.0); %Monocytes 12.4 % (0.0-10.0); Mean Corpuscular HGB CONC 33.4 g/dL (32.0-36.0); Mean Corpuscular Hemoglobin 31.7 pg (27.0-31.0); Mean Corpuscular Volume 94.9 fL (78.0-98.0); Mean Platelet Volume 8.9 fL (7.4-10.4); Platelet Count 214 thou/uL (130-400); RBC Distribution Width 13.8 % (11.5-14.5); White Blood Cell (WBC) Count 8.8 thou/uL (4.8-10.8)
[2020-11-17 07:00] LABS: Anion Gap 14 mmol/L (10-20); BUN (Urea Nitrogen) 23 mg/dL (8.4-25.7); Calc. Creatinine Clearance 79 mL/min (70-130); Calcium 8.2 mg/dL (7.8-10.44); Carbon Dioxide 23 mmol/L (23-31); Chloride 103 mmol/L (98-107); Glucose 133 mg/dL (80-115); Sodium 136 mmol/L (136-145)
[2020-11-17] MEDS: Famotidine 20 MG TAB PO SCH (08:30)
[2020-11-17] MEDS: Zinc Sulfate 220 MG CAP PO SCH (08:31)
[2020-11-17] MEDS: Allopurinol 300 MG TAB PO SCH (08:31)
[2020-11-17] MEDS: Ezetimibe 10 MG TAB PO SCH (08:31)
[2020-11-17] MEDS: Isosorbide Dinitrate 20 MG TAB PO SCH (08:31)
[2020-11-17] MEDS: Ascorbic Acid 500 mg Chewable Tablet PO SCH (08:31)
[2020-11-17] MEDS: Furosemide 20 MG TAB PO SCH (08:31)
[2020-11-17] MEDS: hydrALAZINE 25 MG TAB PO SCH (08:31)
[2020-11-17] MEDS: Carvedilol 25 MG TAB PO SCH (08:31)
[2020-11-17] MEDS: Lisinopril 20 MG TAB PO SCH (08:33)
--- NOTE | 2020-11-17 10:34 | PQF ---
Q26 2018 [facility] Updated: CLINICAL DOCUMENTATION CLARIFICATION FORM: Please check appropriate box(es): HEART FAILURE: A. ACUITY [ x ] Chronic B. TYPE: [ x ] Systolic / HFrEF [ x ] No heart failure [ ] Other diagnosis [ ] Unable to determine In addition, please specify: Present on Admission (POA): [ x] Yes [ ] No [ ] Unable to determine To be completed by CDI/Coding staff for physician review: Present Clinical Indicators - Signs / Symptoms / Labs Results and Location in Medical Record [ x ] Ejection Fraction last echo done on September 12, 2020, showing an EF of 35% to 40%. Per 11/16 CN(JONATHAN Wylie) [ x ] Volume overload No evidence of volume overload per 11/16 CN(JONATHAN Wylie) Present Risk Factors Results and Location in Medical Record [ x] Nonischemic cardiomyopathy, essential HTN 11/16 CN(JONATHAN Wylie) Present Treatments Results and Location in Medical Record [ x] Administration of SUJEY / BB Lisinopril 40 mg po daily and coreg 25 mg PO BID 11/16 per orders [x ] PO diuretics Lasix 20 mg po QAM 11/16 per orders [ x] Hospitalist consult for medical management 11/16 orders CDS/Forging Dies Final Finisher Signature: Noemi Kelly RN, CCDS Phone #: [phone] Date/Time: 11/17/2020 10:31 AM This is a permanent part of the Medical Record [facility]
[2020-11-17 12:08] VITALS: BP 136/82; TEMP 98.7
== END 2020-11-17 12:05 | disposition home or self-care (01) | DRG 483 ==
LOC: SDC 05:29 → SURG B 07:15 → EDSTATUS 10:45
PROVIDERS: ADMIT Orthopaedic Surgery; ATTEND Orthopaedic Surgery
PROC: 0RRJ00Z Replacement of Right Shoulder Joint with Reverse Ball and Socket Synthetic Substitute, Open Approach (ICD-10-PCS; principal; 2020-11-16)
PROC: 0LS30ZZ Reposition Right Upper Arm Tendon, Open Approach (ICD-10-PCS; 2020-11-16)
DX: M19.011 Primary osteoarthritis, right shoulder (principal); I42.8 Other cardiomyopathies; I50.22 Chronic systolic (congestive) heart failure; M10.9 Gout, unspecified; I25.10 Atherosclerotic heart disease of native coronary artery without angina pectoris; E66.9 Obesity, unspecified; E78.5 Hyperlipidemia, unspecified; I11.0 Hypertensive heart disease with heart failure; Z96.651 Presence of right artificial knee joint; E11.9 Type 2 diabetes mellitus without complications; Z95.810 Presence of automatic (implantable) cardiac defibrillator; Z88.8 Allergy status to other drugs, medicaments and biological substances; Z88.1 Allergy status to other antibiotic agents; Z68.31 Body mass index [BMI] 31.0-31.9, adult
CPT/HCPCS: 36415; 36416; 80048; 80053; 85025; 93005; 93010; A4306; C1713; J0360; J0690; J1885; J2001; J2250; J2370; J2405; J2550; J2704; J2795; J3010; J3370; J3490

== ENCOUNTER 2022-11-08 07:23 | Outpatient (CLI) | payer MEDICARE, BC | END 2022-11-08 07:24 | disposition home or self-care (01) | LOC: ULT 07:23 | PROVIDERS: ATTEND Internal Medicine Nephrology | DX: R80.9 Proteinuria, unspecified (principal); R35.1 Nocturia; R30.0 Dysuria; I25.10 Atherosclerotic heart disease of native coronary artery without angina pectoris; M19.90 Unspecified osteoarthritis, unspecified site; F41.9 Anxiety disorder, unspecified; I49.9 Cardiac arrhythmia, unspecified; E78.00 Pure hypercholesterolemia, unspecified; E78.5 Hyperlipidemia, unspecified; R53.83 Other fatigue; I42.8 Other cardiomyopathies; I10 Essential (primary) hypertension; M10.9 Gout, unspecified; N40.0 Benign prostatic hyperplasia without lower urinary tract symptoms; I47.1 Supraventricular tachycardia | CPT/HCPCS: 76770; 93975 ==

== ENCOUNTER 2024-08-26 07:03 | Outpatient (CLI) | payer MEDICARE, BC | END 2024-08-26 07:04 | disposition home or self-care (01) | LOC: BICULT 07:03 | PROVIDERS: ATTEND Urology | DX: N28.9 Disorder of kidney and ureter, unspecified (principal) | CPT/HCPCS: 76770 ==